=== PATIENT | male | born 1990 | race Caucasian/White ===

== ENCOUNTER 2021-10-04 00:20 | Emergency (ER) | payer OTHER ==
[~2021-10-04] VITALS: Ht 175.3 cm; Wt 90.7 kg
--- NOTE | 2021-10-04 00:20 | NUR ---
PT HENRIETTA DONALD, PREBOOK. TAKEN TO CHAIR
[2021-10-04 00:30] VITALS: BP 142/80
--- NOTE | 2021-10-04 00:56 | NUR ---
Dr. Cruz examining patient.
--- NOTE | 2021-10-04 01:08 | NUR ---
PATIENT BIB [place] [place]. PATIENT EXAMINED BY DR. DHILLON. PATIENT MEDICALLY CLEARED AND RELEASED IN CUSTODY IN STABLE CONDITION. ORIGINAL PRE-BOOK FORM GIVEN TO OFFICER MIRIAM, #[id number].
== END 2021-10-04 01:08 ==
LOC: MED 00:20
DX: Z02.89 Encounter for other administrative examinations (principal); V49.49XA Driver injured in collision with other motor vehicles in traffic accident, initial encounter; Y93.89 Activity, other specified; Y92.89 Other specified places as the place of occurrence of the external cause; Y99.8 Other external cause status
CPT/HCPCS: 99283